=== PATIENT | male | born 1950 | race Hispanic/Latino ===

== ENCOUNTER 2022-12-18 10:00 | Outpatient (RCR) | payer MEDICARE | END 2023-01-02 | LOC: PT 10:00 | PROVIDERS: ATTEND Physician Assistant | DX: Z47.1 Aftercare following joint replacement surgery (principal); Z96.652 Presence of left artificial knee joint ==

== ENCOUNTER 2023-01-12 08:53 | Outpatient (RCR) | payer MEDICARE | END 2023-02-01 | LOC: PT 08:53 | PROVIDERS: ATTEND Physician Assistant | DX: Z47.1 Aftercare following joint replacement surgery (principal); Z96.652 Presence of left artificial knee joint; M62.81 Muscle weakness (generalized); R26.89 Other abnormalities of gait and mobility; M25.562 Pain in left knee; M25.662 Stiffness of left knee, not elsewhere classified ==